=== PATIENT | male | born 1960 | race Hispanic/Latino ===

== ENCOUNTER → 2019-12-10 | Day surgery (SDC) | payer MEDICARE, OTHER ==
[2019-12-07 16:15] LABS: BASOPHILS # (AUTO) 0.1 (0.0-0.1); BASOPHILS % 0.7 % (0.0-1.0); EOSINOPHILS # (AUTO) 0.5 (0.0-0.4); EOSINOPHILS % 5.4 % (0.0-6.0); HEMATOCRIT 31.1 % (38.2-49.6); HEMOGLOBIN 10.3 g/dL (14.0-18.0); LYMPHOCYTES # (AUTO) 3.1 (1.0-3.2); LYMPHOCYTES % 30.3 % (18.0-39.1); MEAN CORPUSCULAR HEMOGLOBIN 27.2 pg (28-32); MEAN CORPUSCULAR HGB CONC 33.1 g/dL (31-35); MEAN CORPUSCULAR VOLUME 82.3 fL (81-99); MONOCYTES # (AUTO) 0.6 (0.2-0.8); MONOCYTES % 5.8 % (4.4-11.3); NEUTROPHILS # (AUTO) 5.8 (2.1-6.9); NEUTROPHILS % 57.4 % (38.7-80.0); PLATELET COUNT 396 x10e3/uL (140-360); RED BLOOD COUNT 3.78 x10e6/uL (4.3-5.7); RED CELL DISTRIBUTION WIDTH 13.3 % (11.7-14.4)
[2019-12-07 16:35] LABS: ANION GAP 15.7 mmol/L (8-16); BLOOD UREA NITROGEN 23 mg/dL (7-26); BUN/CREATININE RATIO 22 (6-25); CALCIUM 9.8 mg/dL (8.4-10.2); CARBON DIOXIDE 21 mmol/L (22-29); CHLORIDE 93 mmol/L (98-107); CREATININE, SERUM 1.03 mg/dL (0.72-1.25); EST GLOMERULAR FILTRATION RATE > 60 ML/MIN (60-); GLUCOSE 153 mg/dL (74-118); POTASSIUM 4.7 mmol/L (3.5-5.1); SODIUM 125 mmol/L (136-145)
[~2019-12-10] MED LIST: ACETAMINOPHEN/CODEINE 300MG - 30MG TAB ONE; CEFAZOLIN SOD 1 GM/NS 50ML 50 ML IV ONE; DEXAMETHASONE SOD PHOS INJ 4 MG/ML VIAL ONE; ELIQUIS5 MG PO; EPHEDRINE SULFATE INJ 50 MG/ML VIAL ONE; FENTANYL CITRATE/PF 100MCG/2 ML INJ ONE; FLOMAX0.4 MG PO; GENTAMICIN 120MG/NS 100ML 100 ML ONE; INSULIN REGULAR, HUMAN 100 UNIT/1 ML 3ML VIAL ONE; IOPAMIDOL 300MG/ML 50ML INFUS..BTL IV ONE; LANTUS 3ML100 UNITS/ SC; LIDOCAINE HCL 2% LOCAL INJ 5 ML SDV VIAL INJ ONE; ONDANSETRON HCL INJ 2MG/ML 2ML 2 MG/ML VIAL ONE; ROCURONIUM BROMIDE 10 MG/ML 5ML VIAL IV ONE; SEVOFLURANE INHAL SOLN 250 ML PEN BTL ONE; SUGAMMADEX SODIUM 200 MG/2 ML VIAL IV ONE
[2019-12-10 14:35] VITALS: BP 118/67
--- NOTE | 2019-12-11 03:36 | Operative Report ---
DATE OF PROCEDURE: 12/10/2019 SURGEON: Emili Thapa MD SERVICE: Urology. PREOPERATIVE DIAGNOSES: 1. History of left hydronephrosis. 2. Presence of double-J stent on the left side. 3. Urinary tract infection. 4. Benign prostatic hypertrophy. 5. Microhematuria. POSTOPERATIVE DIAGNOSES: 1. History of left hydronephrosis. 2. Presence of double-J stent on the left side. 3. Urinary tract infection. 4. Benign prostatic hypertrophy. 5. Microhematuria. 6. Right hydronephrosis. OPERATIONS PERFORMED: 1. Cystoscopy, removal of double-J stent from the left side. 2. Left retrograde. 3. Left ureteroscopy. 4. Right retrograde pyelograms under fluoroscopy control. 5. Ureteroscopy. 6. Placement of double-J stent, 7-Icelandic 24 cm long to the right side. 7. Interpretation of x-ray, radiologist not present. 8. Supervision of fluoroscopy, radiologist not present. REINFORCING METAL WORKER: None. ANESTHESIA: General. CLINICAL INDICATION NOTE: This is a 59-year-old patient, was brought for evaluation of the upper tract. He did have prostate surgery as well as retrograde and placement of the left double-J stent for irregular area and hydro in the left side. The final pathology of the tissue was removed was inflammation of it. The patient was brought for reassessment. The procedure was discussed with the patient and . Potential benefits and complications discussed, explained, and accepted. We advised that he may need placement of another double-J. DESCRIPTION OF PROCEDURE AND FINDINGS: After proper level of anesthesia was achieved, the patient was placed in lithotomy position, prepped and draped in a sterile fashion. Urethra inspected, it was unremarkable and appeared to be patent, signs of previous removal of prostate were noticed. Of note, the very close the left ureteral orifice was to the area that was treated from the prostate. On the right side, it was quite irregular of the whole area, it was not possible to identify clearly the orifice. No tumour was identified in the bladder. The left double-J stent was removed. Retrograde pyelogram demonstrating minimal dilation of the ureter, however, . The wire was kept in place and a flexible ureteroscopy was done and appeared to be unremarkable. Therefore, no stent was placed on this side. Following this with significant difficulty, it was possible to identify the opening to the right UO with the use of a Glidewire. Following this, open-end catheter was inserted and significant hydro was noticed on that side with some kinking of , ureteroscopy unremarkable. Wire was kept in place and a 24 cm 7-Icelandic double-J stent was properly positioned. The proper position was verified by x-ray and endoscopy. Due to the patient's prostate outlet selected, not to leaving with the Gold. The patient was transferred in satisfactory condition to recovery room. He will be following in the office. MD DM [email or web address] /[id number]
== END | disposition home or self-care (01) ==
LOC: OR 11:11
PROVIDERS: ATTEND Urology
DX: N13.30 Unspecified hydronephrosis (principal); Z46.6 Encounter for fitting and adjustment of urinary device; N39.0 Urinary tract infection, site not specified; N40.0 Benign prostatic hyperplasia without lower urinary tract symptoms; Z98.890 Other specified postprocedural states; E11.9 Type 2 diabetes mellitus without complications; Z91.041 Radiographic dye allergy status; Z01.810 Encounter for preprocedural cardiovascular examination; Z01.812 Encounter for preprocedural laboratory examination; Z11.59 Encounter for screening for other viral diseases; Z79.02 Long term (current) use of antithrombotics/antiplatelets; Z79.4 Long term (current) use of insulin
CPT/HCPCS: 36415 ×2; 52332; 52351; 74420; 80048; 82948; 84295; 85025; 87635; 93005; C1758; C1769; C2617; J0690; J1100; J1580; J2001; J2405; Q9967; J1817; J3010